=== PATIENT | female | born 2000 | race Caucasian/White ===

== ENCOUNTER 2021-12-29 10:00 | Inpatient (IN) | payer OTHER ==
[2021-12-29 11:01] VITALS: BMI 35.5
[2021-12-29] MEDS ORDERED: ELECTROLYTE-148 SOLN 500 ML IV SCH (11:45)
[2021-12-29] MEDS ORDERED: CITRIC ACID/SODIUM CITRATE 30 ML UNIT-DOSE CUP PO ONE (11:45)
[2021-12-29] MEDS ORDERED: ELECTROLYTE-148 SOLN 500 ML IV ONE (11:45)
[2021-12-29] MEDS ORDERED: morphine SULFATE/PF 1 MG/2 ML (2cc Syringe - QUVA) EP ONE (11:51)
[2021-12-29] MEDS ORDERED: ONDANSETRON 4 MG/2 ML VIAL IVPUSH PRN (11:51)
[2021-12-29] MEDS ORDERED: ceFAZolin SODIUM 1 GM VIAL ONE (11:59)
[2021-12-29] MEDS ORDERED: SODIUM CHLORIDE 0.9% P/F 10 ML VIAL IJ ONE (11:59)
[2021-12-29] MEDS ORDERED: PHENYLEPHRINE HCL 10 MG/1 ML SINGLE DOSE VIAL ONE (12:19)
[2021-12-29] MEDS ORDERED: OXYTOCIN 10 UNITS/ML VIAL ONE ×2 (12:41→12:54)
[2021-12-29] MEDS ORDERED: ONDANSETRON 4 MG/2 ML VIAL ONE (12:44)
[2021-12-29] MEDS ORDERED: IBUPROFEN 800 MG/8 ML IJ IVPB PRN (13:53)
[2021-12-29] MEDS ORDERED: SENNOSIDES/DOCUSATE COMBO (SENNA PLUS) TABLET (UD) PO PRN (13:53)
[2021-12-29] MEDS ORDERED: ACETAMINOPHEN 1000 MG/100 ML BAG IVPB PRN (13:53)
[2021-12-29] MEDS ORDERED: ONDANSETRON 4 MG/2 ML VIAL IVPB PRN (13:53)
[2021-12-29] MEDS ORDERED: OXYTOCIN 20 UNITS in 0.9% NS 20 UNIT/1,000 ML INFUS.BAG IV SCH (14:00)
[2021-12-29 14:56] LABS: CORD HCO3 23.9 mmHg (20-29); CORD PCO2 60.1 mmHg (30-78); CORD pH 7.217 (7.14-7.44)
[2021-12-29] MEDS ORDERED: OXYTOCIN 20 UNITS in 0.9% NS 20 UNIT/1,000 ML INFUS.BAG IV ONE (14:57)
[2021-12-29 15:03] LABS: CORD BASE EXCESS -9.3 mmol/L (0-2); CORD HCO3 16.7 mmHg (20-29); CORD PCO2 36.6 mmHg (30-78); CORD pH 7.276 (7.14-7.44)
[2021-12-30] MEDS: SIMETHICONE 80 MG TAB.CHEW (FP) PO PRN ×2 (01:33→09:03)
[2021-12-30 07:44] LABS: BASO % 0.2 % (0-2.0); EOS % 0.7 % (0-4.5); HEMATOCRIT 36.8 % (32.4-45.2); HEMOGLOBIN 12.2 GM/dL (10.7-15.3); LYMPH % 16.6 % (8-40); MCH 27.7 pg (25.7-33.7); MCHC 33.3 g/dl (32.0-36.0); MEAN CELL VOLUME 83.4 fl (80-96); MEAN PLT VOLUME 8.4 fl (7.5-11.1); MONO % 6.8 % (3.8-10.2); NEUT % 75.7 % (42.8-82.8); PLATELET COUNT 144 10^3/uL (134-434); RBC 4.41 M/mm3 (3.60-5.2); RDW 21.8 % (11.6-15.6); WHITE BLOOD COUNT 9.8 K/mm3 (4.0-10.0)
[2021-12-30] MEDS: PRENATAL VITAMINS W/ FOLIC ACID TABLET (FP) PO SCH (09:02)
[2021-12-30] MEDS: ACETAMINOPHEN 325 MG TABLET (FP) PO PRN (09:03)
[2021-12-30 09:09] LABS: ANISOCYTOSIS 1+; MACROCYTOSIS 1+
[2021-12-30] MEDS ORDERED: oxyCODONE HCL 5 MG TABLET PO PRN (13:00)
[2021-12-30] MEDS: IBUPROFEN 600 MG TABLET (FP) PO PRN (13:35)
[2021-12-30] MEDS ORDERED: BISACODYL 10 MG SUPP.RECT RC PRN (13:53)
[2021-12-30] MEDS ORDERED: ACETAMINOPHEN 325 MG TABLET (FP) PO PRN (13:53)
[2021-12-31] MEDS: SIMETHICONE 80 MG TAB.CHEW (FP) PO PRN (02:03)
[2021-12-31] MEDS: IBUPROFEN 600 MG TABLET (FP) PO PRN ×2 (02:03→15:36)
[2021-12-31] MEDS: ACETAMINOPHEN 325 MG TABLET (FP) PO PRN (07:51)
[2021-12-31] MEDS: PRENATAL VITAMINS W/ FOLIC ACID TABLET (FP) PO SCH (09:12)
[2022-01-01] MEDS: ACETAMINOPHEN 325 MG TABLET (FP) PO PRN (07:23)
[2022-01-01 09:11] VITALS: BP 108/64; PULSE 70
[2022-01-01] MEDS: PRENATAL VITAMINS W/ FOLIC ACID TABLET (FP) PO SCH (10:11)
[2022-01-01 10:18] VITALS: TEMP 98.1
== END 2022-01-01 12:57 | disposition home or self-care (01) | DRG 540 ==
LOC: JLDR 10:00 → J3W 15:05
PROVIDERS: ADMIT Family Medicine; ATTEND Family Medicine
PROC: 10D00Z1 Extraction of Products of Conception, Low, Open Approach (ICD-10-PCS; principal; 2021-12-29)
DX: O82 Encounter for cesarean delivery without indication (principal); O34.219 Maternal care for unspecified type scar from previous cesarean delivery; Z3A.40 40 weeks gestation of pregnancy; Z37.0 Single live birth
CPT/HCPCS: 36415; 36600; 82803; 85025; 88307-TC